=== PATIENT | female | born 1930 | race Caucasian/White ===

== ENCOUNTER 2016-05-17 13:08 | Outpatient (RCR) | payer MEDICARE, OTHER, MEDICAID ==
[~2016-05-17 13:08] MED LIST: ENXP40I.4 SC; INSU200I SQ; LACT1TAB10 PO; NF-VAL40T PO; PEDI18TA2 PO; TRAM-21 PO
--- OUTSIDE RECORDS SUMMARY | 2016-05-17 13:10 | XMS REPORT | Continuity of Care Document ---
Author Author [facility] Organization [facility] Address Unknown Phone Unavailable Care Team Providers Care Scrap Metal Processing Worker Name Role Phone SHIRA MCKEON DO PCP Insurance Providers Payer Name Policy Number Subscriber Name Relationship Wps Medicare [id number] Melissa Hernandez 20 Self / Same As Patient For Life [id number] Joel Hernandez T 01 Advance Directives Directive Response Recorded Date/Time Advance Directives Yes 12/04/14 8:30am Health Care Power of Manager Architecture No 12/04/14 8:30am Organ Donor No 12/04/14 8:30am Resuscitation Status Full Code 12/04/14 8:30am Problems No known problems or medical conditions. Medications Medication Dose Route Sig Days/Qty Instructions Order Date Discontinued Date Status Lactobacillus Acidophilus 1 Tab PO TWICE A DAY 12/04/14 Active Valsartan 40 Mg PO DAILY 12/04/14 Active Pedi Mv No.79/Ferrous Fumarate 1 Tab PO TWICE A DAY 12/04/14 Active Insulin Lispro Unit SQ FOUR TIMES DAILY AC & HS ON SLIDING SCALE. 12/04 Active Tramadol Hcl 50 Mg PO EVERY 12 HOURS 20 Qty 12/09/14 Active Enoxaparin Sodium 40 Mg SC DAILY@1400 14 Qty 12/10/14 Active Social History Social History Problem Response Recorded Date/Time Alcohol Use Denies Use 12/04/2014 8:30am Recreational Drug Use No 12/04/2014 8:30am Recent Foreign Travel No 12/04/2014 8:30am Recent Infectious Disease Exposure No 12/04/2014 8:30am Hospitalization with Isolation Denies 12/10/2014 10:03am Sexually Transmitted Disease No 12/04/2014 8:30am HIV/AIDS No 12/04/2014 8:30am Smoking Status Never a Smoker 12/04/2014 8:30am Do you dip or chew tobacco? No 12/04/2014 8:30am Query Response Start Date Stop Date Smoking Status Never a Smoker Hospital Discharge Instructions Patient Instructions Physician Instructions New, Converted or Re-Newed RX: RX on Chart Plan of Care/Instructions/FU: Please remove central line on Tuesday, 10 December, prior to discharge. Please arrange for Lovenox 30 mg subcutaneously to be given once a day by the [facility] staff at [facility]. Follow-up with nc at [facility] in [facility] on Tuesday, 17 December. May shower. Activity as Tolerated: No Goal: No lifting over 10 pounds Discharge Diet: No Restrictions Care Plan Patient Instructions:: Please remove central line on December, prior to discharge.Please arrange for Lovenox 30 mg subcutaneously to be given once a day bythe fci staff at [facility]. Follow-up with [facility] in [facility] on December. May shower. Goal:: No lifting over 10 pounds Plan of Care Discharge Date 12/10/14 9:30am Disposition 30 STILL A PATIENT Instructions/Education Provided Laparoscopic Bowel Resection (DC) Prescriptions See Medications Section Referrals (Unspecified) Reason(s) for Referral: Pt to follow up with Dr. Uriarte in [place] on Tuesday the , . Pt to follow up with Dr. Muir in [place] in 3 weeks, [phone]. Additional Instructions/Education PHYSICAL THERAPY TO EVAL AND TREAT OCCUPATIONAL THERAPY TO EVAL AND TREAT. SPEECH THERAPY TO EVAL AND TREAT. Functional Status Query Response Date Recorded Patient Orientation Person Place December 10, 2014 10:03am Comprehension Ability Understands Concepts December 07, 2014 8:10pm Allergies, Adverse Reactions, Alerts Allergen Type Severity Reaction Status Last Updated lisinopril ([id number]) Allergy Unknown Active 12/04/14 Immunizations Name Given Type Date of Pneumonia Vaccine 05/09/04 Historical pneumococcal polysaccharide PPV23 12/10/14 Administered Vital Signs Acute Vital Signs Vital Response Date/Time Temperature (Fahrenheit) 97.8 degrees F (97.6 - 99.5) Temperature (Calculated Celsius) 36.23871 degrees C (36.4 - 37.5) Temperature Source Temporal Pulse Rate (adult) 75 bpm (60 - 90) Respiratory Rate 20 bpm (12 - 24) O2 Sat by Pulse Oximetry 96 % (88 - 100) Blood Pressure 156/89 mm Hg Blood Pressure Mean 111 mm Hg Pain Pain Intensity 0 Height (Feet) 5 feet Height (Inches) 0.00 inches Height (Calculated Centimeters) 152.977750 cm Weight (Pounds) 102 pounds Weight (Ounces) 0.0 oz Weight (Calculated Grams) 17428.422 gm Weight (Calculated Kilograms) 46.723373 kilograms Calculated BMI 16.97 Results Laboratory Results Test Name Result Units Flags Reference Collection Date/Time Result Date/ Time Comments White Blood Count 9.1 10^3/uL 4.3-11.0 12/06/2014 9:40am 12/06/2014 9: 50am Red Blood Count 3.70 10^6/uL L 4.35-5.85 12/06/2014 9:40am 12/06/2014 9: 50am Hemoglobin 9.1 G/DL L 11.5-16.0 12/06/2014 9:40am 12/06/2014 9:50am Hematocrit 29 % L 35-52 12/06/2014 9:40am 12/06/2014 9:50am Mean Corpuscular Volume 80 FL 80-99 12/06/2014 9:40am 12/06/2014 9: 50am Mean Corpuscular Hemoglobin 25 PG 25-34 12/06/2014 9:40am 12/06/2014 9: 50am Mean Corpuscular Hemoglobin Concent 31 G/DL L 32-36 12/06/2014 9:40am 9:50am Red Cell Distribution Width 17.2 % H 10.0-14.5 12/06/2014 9:40am 2014 9:50am Platelet Count 243 10^3/uL 130-400 12/06/2014 9:40am 12/06/2014 9:50am Mean Platelet Volume 10.0 FL 7.4-10.4 12/06/2014 9:40am 12/06/2014 9: 50am Neutrophils (%) (Auto) 81 % H 42-75 12/05/2014 5:00am 12/05/2014 5:14am Lymphocytes (%) (Auto) 11 % L 12-44 12/05/2014 5:00am 12/05/2014 5:14am Monocytes (%) (Auto) 8 % 0-12 12/05/2014 5:00am 12/05/2014 5:14am Eosinophils (%) (Auto) 0 % 0-10 12/05/2014 5:00am 12/05/2014 5:14am Basophils (%) (Auto) 0 % 0-10 12/05/2014 5:00am 12/05/2014 5:14am Neutrophils # (Auto) 9.3 X 10^3 H 1.8-7.8 12/05/2014 5:00am 12/05/2014 5: 14am Lymphocytes # (Auto) 1.3 X 10^3 1.0-4.0 12/05/2014 5:00am 12/05/2014 5: 14am Monocytes # (Auto) 0.9 X 10^3 0.0-1.0 12/05/2014 5:00am 12/05/2014 5: 14am Eosinophils # (Auto) 0.0 10^3/uL 0.0-0.3 12/05/2014 5:00am 12/05/2014 5 :14am Basophils # (Auto) 0.0 10^3/uL 0.0-0.1 12/05/2014 5:00am 12/05/2014 5: 14am Sodium Level 139 MMOL/L 135-145 12/09/2014 9:24am 12/09/2014 10:23am Potassium Level 4.0 MMOL/L 3.6-5.0 12/09/2014 9:24am 12/09/2014 10: 23am Chloride Level 105 MMOL/L 98-107 12/09/2014 9:24am 12/09/2014 10:23am Carbon Dioxide Level 29 MMOL/L 21-32 12/09/2014 9:24am 12/09/2014 10: 23am Anion Gap 5 MMOL/L 5-14 12/09/2014 9:12/09/2014 10:23am Blood Urea Nitrogen 13 MG/DL 7-18 12/09/2014 9:12/09/2014 10:23am Creatinine 0.67 MG/DL 0.60-1.30 12/09/2014 9:12/09/2014 10:23am BUN/Creatinine Ratio 19 12/09/2014 9:12/09/2014 10:23am Estimat Glomerular Filtration Rate > 60 12/09/2014 9:2014 10:23am GFR INTERPRETIVE DATA UNITS FOR ESTIMATED GFR (eGFR): mL/min/1.73 M2 REFERENCE RANGE FOR ESTIMATED GFR (eGFR) eGFR NORMAL eGFR >60 MODERATELY DECREASED eGFR 30-59 SEVERLY DECREASED eGFR 15-29 KIDNEY FAILURE <15 (OR DIALYSIS) Glucose Level 209 MG/DL H 70-105 12/09/2014 9:12/09/2014 10:23am Glucometer 122 MG/DL H 70-110 12/10/2014 6:12/10/2014 6:16am Calcium Level 8.3 MG/DL L 8.5-10.1 12/09/2014 9:12/09/2014 10:23am Phosphorus Level 3.8 MG/DL 2.3-4.7 12/09/2014 9:12/09/2014 10: 23am Magnesium Level 2.0 MG/DL 1.8-2.4 12/09/2014 9:12/09/2014 10:23am Total Bilirubin 0.4 MG/DL 0.1-1.0 12/09/2014 9:12/09/2014 10:23am Alkaline Phosphatase 47 U/L 40-136 12/09/2014 9:12/09/2014 10: 23am Aspartate Amino Transf (AST/SGOT) 26 U/L 5-34 12/09/2014 9:2014 10:23am Alanine Aminotransferase (ALT/SGPT) 23 U/L 0-55 12/09/2014 9:12/09 10:23am Total Protein 5.2 G/DL L 6.4-8.2 12/09/2014 9:12/09/2014 10:23am Albumin 2.7 G/DL L 3.2-4.5 12/09/2014 9:24am 12/09/2014 10:23am Prealbumin 12.9 MG/DL L 18.0-35.7 12/09/2014 9:24am 12/09/2014 10:43am Triglycerides Level 89 MG/DL <150 12/09/2014 9:24am 12/09/2014 10:23am Procedures Procedure Status Date Provider(s) Insertion of triple lumen catheter completed 12/04/14 JOVANY URIARTE MD Resection of colon completed 12/04/14 JOVANY URIARTE MD Tracing only of electrocardiogram completed 12/04/14 CHRISTELLE TOBIAS MD Encounters Encounter Location Date/Time Discharged Inpatient Via [facility] 12/04/14 7:22am
[2016-05-17 13:35] LABS: BASOPHILS % (AUTO) 0 % (0-10); EOSINOPHILS # (AUTO) 0.2 10^3/uL (0.0-0.3); EOSINOPHILS % (AUTO) 3 % (0-10); LYMPHOCYTES # (AUTO) 1.4 X 10^3 (1.0-4.0); LYMPHOCYTES % (AUTO) 24 % (12-44); MEAN CORPUSCULAR HEMOGLOBIN 30 PG (25-34); MEAN CORPUSCULAR HGB CONC 34 G/DL (32-36); MEAN CORPUSCULAR VOLUME 88 FL (80-99); MEAN PLATELET VOLUME 10.7 FL (7.4-10.4); MONOCYTES # (AUTO) 0.5 X 10^3 (0.0-1.0); MONOCYTES % (AUTO) 9 % (0-12); NEUTROPHILS # (AUTO) 3.8 X 10^3 (1.8-7.8); NEUTROPHILS % (AUTO) 64 % (42-75); PLATELET COUNT 150 10^3/uL (130-400); RED BLOOD COUNT 4.13 10^6/uL (4.35-5.85); RED CELL DISTRIBUTION WIDTH 13.2 % (10.0-14.5)
[2016-05-17 14:10] LABS: ALBUMIN 4.1 G/DL (3.2-4.5); BILIRUBIN,TOTAL 0.6 MG/DL (0.1-1.0); CALCIUM 9.2 MG/DL (8.5-10.1); CREATININE SERUM 1.34 MG/DL (0.60-1.30); POTASSIUM 4.2 MMOL/L (3.6-5.0); TOTAL PROTEIN 6.8 G/DL (6.4-8.2)
[2016-05-31] MEDS ORDERED: CLON0.1T PO (14:05)
[2016-05-31] MEDS ORDERED: HYDR-757 PO (14:05)
[2016-05-31] MEDS ORDERED: INSU100V6 SQ (14:05)
[2016-05-31] MEDS ORDERED: MAGN400O7 PO (14:05)
[2016-05-31] MEDS ORDERED: OMEP20CA12 PO (14:05)
[2016-05-31] MEDS ORDERED: VALS80TA30 PO (15:57)
[2016-05-31] MEDS ORDERED: TRAM50TA2 PO ×2 (16:01)
[2016-05-31] MEDS ORDERED: INSU100I14 SC (16:07)
[2016-06-02] MEDS ORDERED: TRAM50TA2 PO (09:32)
== END 2016-08-15 | disposition home or self-care (01) ==
LOC: ONC 13:08
PROVIDERS: ATTEND Internal Medicine Hematology & Oncology
DX: C18.4 Malignant neoplasm of transverse colon (principal); C18.0 Malignant neoplasm of cecum; Z98.0 Intestinal bypass and anastomosis status; Z79.4 Long term (current) use of insulin
CPT/HCPCS: 36415; 80053; 82378; 85025; 99213

== ENCOUNTER 2016-05-21 08:35 | Outpatient (CLI) | payer MEDICARE, OTHER, MEDICAID ==
[~2016-05-21] VITALS: Ht 152.4 cm; Wt 60.8 kg
--- OUTSIDE RECORDS SUMMARY | 2016-05-21 08:39 | XMS REPORT | Continuity of Care Document ---
Author Author [facility] Organization [facility] Address Unknown Phone Unavailable Care Team Providers Care Basket Hand Weaver Name Role Phone SHIRA MCKEON DO PCP Insurance Providers Payer Name Policy Number Subscriber Name Relationship Wps Medicare [id number] Melissa Hernandez 18 Self / Same As Patient For Life [id number] Joel Hernandez T 01 Advance Directives Directive Response Recorded Date/Time Advance Directives Yes 12/04/14 8:30am Health Care Power of Cyber Workforce Developer And Manager No 12/04/14 8:30am Organ Donor No 12/04/14 [...] be given once a day by the shelter staff at [facility]. Follow-up with ak at [facility] in [facility] on Tuesday, 17 December. May shower. Activity as Tolerated: No Goal: No lifting over 10 pounds Discharge Diet: No Restrictions Care Plan Patient Instructions:: Please remove central line on December, prior to discharge.Please arrange for Lovenox 30 mg subcutaneously to be given once a day bythe shelter staff at [facility]. Follow-up with [facility] in [facility] on December. May shower. Goal:: No lifting over 10 pounds Plan of Care Discharge Date 12/10/14 9:30am Disposition 30 STILL A PATIENT Instructions/Education Provided Laparoscopic Bowel Resection (DC) Prescriptions See Medications Section Referrals (Unspecified) Reason(s) for Referral: Pt to follow up with Dr. Uriarte in [place] on Tuesday the , . Pt to follow up with Dr. Muir in [place] in 3 weeks, [phone]. Additional Instructions/Education PHYSICAL THERAPY TO EVAL AND TREAT OCCUPATIONAL THERAPY TO EVAL AND TREAT. SPEECH THERAPY TO EVAL AND TREAT. Functional Status Query Response Date Recorded Patient Orientation Person Place December 10, 2014 10:03am Comprehension Ability Understands Concepts December 07, 2014 8:10pm Allergies, Adverse Reactions, Alerts Allergen Type Severity Reaction Status Last Updated lisinopril ([id number]) Allergy Unknown Active 12/04/14 Immunizations Name Given Type Date of Pneumonia Vaccine 05/09/04 Historical pneumococcal polysaccharide PPV23 12/10/14 Administered Vital Signs Acute Vital Signs Vital Response Date/Time Temperature (Fahrenheit) 97.8 degrees F (97.6 - 99.5) Temperature (Calculated Celsius) 36.11927 degrees C (36.4 - 37.5) Temperature Source Temporal Pulse Rate (adult) 75 bpm (60 - 90) Respiratory Rate 20 bpm (12 - 24) O2 Sat by Pulse Oximetry 96 % (88 - 100) Blood Pressure 156/89 mm Hg Blood Pressure Mean 111 mm Hg Pain Pain Intensity 0 Height (Feet) 5 feet Height (Inches) 0.00 inches Height (Calculated Centimeters) 152.817900 cm Weight (Pounds) 102 pounds Weight (Ounces) 0.0 oz Weight (Calculated Grams) 37480.422 gm Weight (Calculated Kilograms) 46.956944 kilograms Calculated BMI 16.97 Results Laboratory Results [...] Encounters Encounter Location Date/Time Discharged Inpatient Via [facility] 12/04/14 7:22am
== END 2016-05-21 12:02 ==
LOC: PREOP 08:35
PROVIDERS: ATTEND Surgery
DX: Z01.818 Encounter for other preprocedural examination (principal); K43.2 Incisional hernia without obstruction or gangrene

== ENCOUNTER 2016-05-31 10:16 | Day surgery (SDC) | payer MEDICARE, OTHER, MEDICAID ==
[~2016-05-31] VITALS: Ht 152.4 cm; Wt 60.8 kg
--- OUTSIDE RECORDS SUMMARY | 2016-05-31 10:22 | XMS REPORT | Continuity of Care Document ---
Author Author [facility] Organization [facility] Address Unknown Phone Unavailable Care Team Providers Care Port Patrol Officer Name Role Phone SHIRA MCKEON DO PCP Insurance Providers Payer Name Policy Number Subscriber Name Relationship Wps Medicare [id number] Meilssa Hernandez 20 Self / Same As Patient For Life [id number] Joel Hernandez T 01 Advance Directives Directive Response Recorded Date/Time Advance Directives Yes 12/04/14 8:30am Health Care Power of Oriental Rug Repairer No 12/04/14 8:30am Organ Donor No 12/04/14 [...] be given once a day by the senior care staff at [facility]. Follow-up with wa at [facility] in [facility] on Tuesday, 17 December. May shower. Activity as Tolerated: No Goal: No lifting over 10 pounds Discharge Diet: No Restrictions Care Plan Patient Instructions:: Please remove central line on December, prior to discharge.Please arrange for Lovenox 30 mg subcutaneously to be given once a day bythe senior care staff at [facility]. Follow-up with [facility] in [facility] on December. May shower. Goal:: No lifting over 10 pounds Plan of Care Discharge Date 12/10/14 9:30am Disposition 30 STILL A PATIENT Instructions/Education Provided Laparoscopic Bowel Resection (DC) Prescriptions See Medications Section Referrals (Unspecified) Reason(s) for Referral: Pt to follow up with Dr. Uriarte in [place] on Tuesday the , . Pt to follow up with Dr. Muir in [place] in 3 weeks, [phone]. Additional Instructions/Education PHYSICAL THERAPY TO EVAL AND TREAT OCCUPATIONAL THERAPY TO EVAL AND TREAT. SPEECH THERAPY TO EVAL AND TREAT. Functional Status Query Response Date Recorded Patient Orientation Person Place December 10, 2014 10:03am Comprehension Ability Understands Concepts December 07, 2014 8:10pm Allergies, Adverse Reactions, Alerts Allergen Type Severity Reaction Status Last Updated lisinopril ([id number]) Allergy Unknown Active 12/04/14 Immunizations Name Given Type Date of Pneumonia Vaccine 05/09/04 Historical pneumococcal polysaccharide PPV23 12/10/14 Administered Vital Signs Acute Vital Signs Vital Response Date/Time Temperature (Fahrenheit) 97.8 degrees F (97.6 - 99.5) Temperature (Calculated Celsius) 36.56847 degrees C (36.4 - 37.5) Temperature Source Temporal Pulse Rate (adult) 75 bpm (60 - 90) Respiratory Rate 20 bpm (12 - 24) O2 Sat by Pulse Oximetry 96 % (88 - 100) Blood Pressure 156/89 mm Hg Blood Pressure Mean 111 mm Hg Pain Pain Intensity 0 Height (Feet) 5 feet Height (Inches) 0.00 inches Height (Calculated Centimeters) 152.476636 cm Weight (Pounds) 102 pounds Weight (Ounces) 0.0 oz Weight (Calculated Grams) 08989.422 gm Weight (Calculated Kilograms) 46.991788 kilograms Calculated BMI 16.97 Results Laboratory Results [...] Encounters Encounter Location Date/Time Discharged Inpatient Via [facility] 12/04/14 7:22am
--- OUTSIDE RECORDS SUMMARY | 2016-05-31 10:22 | XMS REPORT | Continuity of Care Document ---
Author Author [facility] Organization [facility] Address Unknown Phone Unavailable Care Team Providers Care Network Systems Integrator Name Role Phone SHIRA MCKEON DO PCP Insurance Providers Payer Name Policy Number Subscriber Name Relationship Wps Medicare [id number] Melissa Hernandez 18 Self / Same As Patient For Life [id number] Joel Hernandez T 01 Advance Directives Directive Response Recorded Date/Time Advance Directives Yes 12/04/14 8:30am Health Care Power of Tool Repairer No 12/04/14 8:30am Organ Donor No [...] be given once a day by the skilled nursing staff at [facility]. Follow-up with nd at [facility] in [facility] on Tuesday, 17 December. May shower. Activity as Tolerated: No Goal: No lifting over 10 pounds Discharge Diet: No Restrictions Care Plan Patient Instructions:: Please remove central line on December, prior to discharge.Please arrange for Lovenox 30 mg subcutaneously to be given once a day bythe skilled nursing staff at [facility]. Follow-up with [facility] in [facility] on December. May shower. Goal:: No lifting over 10 pounds Plan of Care Discharge Date 12/10/14 9:30am Disposition 30 STILL A PATIENT Instructions/Education Provided Laparoscopic Bowel Resection (DC) Prescriptions See Medications Section Referrals (Unspecified) Reason(s) for Referral: Pt to follow up with Dr. Uriarte in [place] on Tuesday the , . Pt to follow up with Dr. Muir in [place] in 3 weeks, [phone]. Additional Instructions/Education PHYSICAL THERAPY TO EVAL AND TREAT OCCUPATIONAL THERAPY TO EVAL AND TREAT. SPEECH THERAPY TO EVAL AND TREAT. Functional Status Query Response Date Recorded Patient Orientation Person Place December 10, 2014 10:03am Comprehension Ability Understands Concepts December 07, 2014 8:10pm Allergies, Adverse Reactions, Alerts Allergen Type Severity Reaction Status Last Updated lisinopril ([id number]) Allergy Unknown Active 12/04/14 Immunizations Name Given Type Date of Pneumonia Vaccine 05/09/04 Historical pneumococcal polysaccharide PPV23 12/10/14 Administered Vital Signs Acute Vital Signs Vital Response Date/Time Temperature (Fahrenheit) 97.8 degrees F (97.6 - 99.5) Temperature (Calculated Celsius) 36.18624 degrees C (36.4 - 37.5) Temperature Source Temporal Pulse Rate (adult) 75 bpm (60 - 90) Respiratory Rate 20 bpm (12 - 24) O2 Sat by Pulse Oximetry 96 % (88 - 100) Blood Pressure 156/89 mm Hg Blood Pressure Mean 111 mm Hg Pain Pain Intensity 0 Height (Feet) 5 feet Height (Inches) 0.00 inches Height (Calculated Centimeters) 152.855873 cm Weight (Pounds) 102 pounds Weight (Ounces) 0.0 oz Weight (Calculated Grams) 89286.422 gm Weight (Calculated Kilograms) 46.067909 kilograms Calculated BMI 16.97 Results Laboratory Results [...] Encounters Encounter Location Date/Time Discharged Inpatient Via [facility] 12/04/14 7:22am
--- NOTE | 2016-05-31 10:36 | Progress Note-Pre Operative ---
Pre-Operative Progress Note H&P Reviewed The H&P was reviewed, patient examined and no changes noted. Date H&P Reviewed: May 31, 2016 Time H&P Reviewed: 10:35 Pre-Operative Diagnosis: ventral hernia JOVANY URIARTE MD May 31, 2016 10:36 am
[2016-05-31] MEDS ORDERED: CATHETER FLUSH 10 ML SYR IV PRN (10:45)
[2016-05-31] MEDS ORDERED: ceFAZolin 1 GM/NS 50 ML IVPB IV ONE ×2 (10:45)
[2016-05-31] MEDS ORDERED: oxyCODONE ER 10 MG (OxyCONTIN CR) TAB PO ONE ×2 (10:52→11:00)
[2016-05-31] MEDS ORDERED: ceFAZolin 1,000 MG (ANCEF) VIAL ONE (10:53)
[2016-05-31] MEDS ORDERED: NORMAL SALINE (BAXTER MINI) 50 ML IV ONE (10:53)
[2016-05-31] MEDS ORDERED: CELECOXIB 100 MG (CeleBREX) CAP PO ONE ×2 (10:53→11:00)
[2016-05-31] MEDS ORDERED: ACETAMINOPHEN 500 MG TAB (TYLENOL) ONE (10:53)
[2016-05-31 11:00] VITALS: BP 199/99
[2016-05-31] MEDS ORDERED: ACETAMINOPHEN 500 MG TAB (TYLENOL) PO ONE (11:00)
[2016-05-31] MEDS ORDERED: morphine INJ 10 MG/ML 1ML (SYR OR VIAL) IV PRN (11:00)
[2016-05-31] MEDS ORDERED: PREGABALIN 75 MG (LYRICA) CAP PO ONE (11:00)
[2016-05-31] MEDS ORDERED: ONDANSETRON 4 MG/2 ML (SDV) Z0FRAN ONE (11:09)
[2016-05-31] MEDS ORDERED: LIDOCAINE JELLY 2% (XYLOCAINE) 5 ML TUBE ONE (11:09)
[2016-05-31] MEDS ORDERED: proPOfol 200 MG/20 ML (DIPRIVAN) VIAL IV ONE (11:09)
[2016-05-31] MEDS ORDERED: LACTATED RINGERS 1,000 ML IV ONE ×2 (11:09→13:54)
[2016-05-31] MEDS: LACTATED RINGERS 1,000 ML IV SCH ×3 (11:09→15:01)
[2016-05-31] MEDS ORDERED: LIDOCAINE PF 2% 10 ML (XYLOCAINE) AMP ONE (11:09)
[2016-05-31] MEDS ORDERED: ROCURONIUM 50 MG/5 ML (ZEMURON) VIAL IV ONE (11:09)
[2016-05-31] MEDS ORDERED: MIDAZOLAM 2 MG/2 ML (VERSED) VIAL ONE (11:10)
[2016-05-31] MEDS ORDERED: BUP/EPI 0.25% 1:200,000 (MARCAINE) 30 ML VIAL ONE (11:11)
[2016-05-31] MEDS ORDERED: KETAMINE HCL 100 MG/ML 5 ML VIAL ONE (11:32)
[2016-05-31] MEDS ORDERED: LIDOCAINE PF 0.5% 50 ML (XYLOCAINE) VIAL ONE (12:16)
[2016-05-31] MEDS ORDERED: SEVOFLURANE (ULTANE) 15 ML INHAL SOLN ONE ×8 (12:16→13:54)
[2016-05-31] MEDS ORDERED: hydrALAZINE (APESOLINE) 20 MG/ML VIAL ONE (13:22)
--- NOTE | 2016-05-31 13:31 | Progress Note-Post Operative ---
Post-Operative Progess Note Pre-Operative Diagnosis ventral hernia Post-Operative Diagnosis same Post-Op Procedure Note Date of Procedure: May 31, 2016 Name of Procedure: robotic assisted repair with mesh Anesthesia Type Gen. Estimated blood loss (mL): minimal JOVANY URIARTE MD May 31, 2016 1:31 pm
[2016-05-31] MEDS ORDERED: NEOSTIGMINE (BLOXIVERZ ) 1 MG/1ML 10 ML VIAL ONE (13:35)
[2016-05-31] MEDS ORDERED: GLYCOPYRROLATE 0.2 MG/ML (ROBINUL) 2 ML VIAL ONE (13:35)
[2016-05-31] MEDS ORDERED: ONDANSETRON 4 MG/2 ML (SDV) Z0FRAN IVP PRN ×2 (13:45→14:00)
[2016-05-31] MEDS ORDERED: HYDROcodone/APAP 5 MG/325 MG (LORTAB) TAB PO PRN (13:45)
[2016-05-31] MEDS ORDERED: MEPERIDINE (DEMEROL) INJ 50 MG/ML IVP PRN (14:00)
[2016-05-31] MEDS ORDERED: morphine INJ 10 MG/ML 1ML (SYR OR VIAL) IVP PRN (14:00)
[2016-05-31] MEDS ORDERED: HYDR-757 PO (14:05)
[2016-05-31] MEDS ORDERED: CLON0.1T PO (14:05)
[2016-05-31] MEDS ORDERED: MAGN400O7 PO (14:05)
[2016-05-31] MEDS ORDERED: OMEP20CA12 PO (14:05)
[2016-05-31] MEDS ORDERED: INSU100V6 SQ (14:05)
--- NOTE | 2016-05-31 14:09 | OPERATIVE REPORT ---
PROCEDURE PHYSICIAN: JOVANY URIARTE DATE OF PROCEDURE: 05/31/2016 PREOPERATIVE DIAGNOSIS: Ventral hernia. POSTOPERATIVE DIAGNOSIS: Ventral hernia. OPERATION: Robotic assisted repair of ventral hernia with mesh. SURGEON: Kenny ANESTHESIA: General anesthesia. BLOOD LOSS: Minimal. FLUIDS: 100 mL of crystalloids. TYPE OF WOUND: Type I (clean wound). INDICATION FOR PROCEDURE: This lady presented with a ventral hernia in relation to a short upper midline incision used to extract the specimen during right hemicolectomy performed in 2014. Due to increasing symptoms, it was felt reasonable to repair the hernia with minimally invasive technique and mesh reinforcement. Informed consent was obtained after reviewing the operative details and complications of hematoma, infection of the mesh and recurrence of the hernia. DESCRIPTION OF PROCEDURE: She was placed supine on the operating table and general anesthesia induced using an endotracheal tube. A gram of Ancef was administered intravenously as prophylaxis against wound infection. Sequential compression devices were placed around her legs, to minimize the risk of venous thrombosis. The left side of her body was tilted up on a roll to facilitate triangulation of the robotic system. Abdomen was then prepared and draped in the usual sterile manner. Pneumoperitoneum was established using a Veress needle introduced over left subcostal margin. Intra-abdominal pressure was maintained at 15 mmHg. A 12 mm trocar was placed and anatomy visualized using the 3 dimensional, high definition laparoscope associated with da Shon system. Omentum was adherent to the undersurface of the hernia. Under direct view, I placed another 12 mm trocar over the left side of the abdomen along the midaxillary line, followed by an 8 mm cannula over the left lower quadrant. The initial trocar over the left subcostal margin had to be moved further laterally to avoid collision with the instruments. The robotic system was docked in place. Omentum was taken down using hook cautery, delineating multiple defects along the previous incision. The defect was then approximated using 2 separate sutures of 0 V-Loc using robotic assistance. The repair was then reinforced with polypropylene mesh measuring 10.2 x 15.2 cm in diameter. A self-retaining balloon contained within the mesh was used to secure the mesh during suturing. The edges of the mesh were then secured with 2-0 V-Loc sutures with the robotic assistance. Hemostasis was satisfactory and the operation concluded. The incisions were then closed using 4-0 Vicryl, in a subcuticular fashion. 0.25% Marcaine with epinephrine was infiltrated along the incisions, both preemptively and at the conclusion of the operation. She tolerated the procedure well, was extubated in the operating room and taken to the recovery room in a stable condition. [place], sponges, and instruments were correct the end of the operation. Job ID: [id number] Dictated Date: 05/31/2016 13:30:10 Eye Dropper Assembler Date: 05/31/2016 14:01:27 / marlon MARTINEZ
[2016-05-31] MEDS ORDERED: KETOROLAC 30 MG/ML VIAL ONE (14:16)
[2016-05-31] MEDS: KETOROLAC 30 MG/ML VIAL IV SCH ×3 (14:25→23:32)
[2016-05-31 14:30] VITALS: BP 190/90
[2016-05-31] MEDS: fentaNYL INJECTION 100 MCG/2 ML AMP IV PRN ×3 (15:01→21:45)
[2016-05-31] MEDS ORDERED: VALS80TA30 PO (15:57)
[2016-05-31] MEDS ORDERED: TRAM50TA2 PO ×2 (16:01)
[2016-05-31] MEDS ORDERED: INSU100I14 SC (16:07)
[2016-05-31 16:24] VITALS: BP 177/85
[2016-05-31] MEDS: inSUlin ASPART (NovoLOG) 1 UNIT/0.01 ML (CHARGE PER UNIT) SC SCH ×2 (16:56→21:00)
[2016-05-31 20:00] VITALS: BP 180/74
[2016-05-31 23:40] VITALS: BP 170/76
[2016-06-01 03:56] VITALS: BP 168/76
[2016-06-01] MEDS: inSUlin ASPART (NovoLOG) 1 UNIT/0.01 ML (CHARGE PER UNIT) SC SCH ×4 (05:49→21:08)
[2016-06-01] MEDS: KETOROLAC 30 MG/ML VIAL IV SCH ×4 (05:49→23:20)
[2016-06-01] MEDS: LACTATED RINGERS 1,000 ML IV SCH ×2 (07:37→09:18)
[2016-06-01 08:00] VITALS: BP 167/75
--- NOTE | 2016-06-01 09:57 | Physical Therapy Evaluation ---
PT Evaluation-General Medical Diagnosis Admission Date May 31, 2016 at 13:32 Medical Diagnosis: ventral hernia Onset Date: May 31, 2016 Therapy Diagnosis Therapy Diagnosis: debility Height/Weight Height (Feet): 5 Height (Inches): 0.00 Weight (Pounds): 134 Weight (Ounces): 0.0 Precautions Precautions/Isolations: Fall Prevention, Standard Precautions Referral Physician: Kenny Reason for Referral: Evaluation/Treatment Medical History Pertinent Medical History: DM, HTN Additional Medical History bipolar; subdural hematoma Current History s/p laparoscopy Reviewed History: Yes Social History Home: Long Term Prior/Core FIM Prior Level of Function Functional [place] Measure 0=Not Assessed/NA 4=Minimal Assistance 1=Total Assistance 5=Supervision or Setup 2=Maximal Assistance 6=Modified [place] 3=Moderate Assistance 7=Complete [place] Bed Mobility: 5 Transfers (B,C,W/C) (FIM): 5 Gait: 5 uses FWW at [place] PT Evaluation-Current Subjective Patient is in bed and agrees to PT. Pain Numeric Pain Scale: 5-Moderate Pain Location: Lower Location Body Site: Abdomen Pain Description: Acute Objective Patient Orientation: Person, Time, Situation Problem Solving: Fair Attachments: Oxygen, IV ROM/Strength ROM Lower Extremities bilateral LE WFL Strenght Lower Extremities bilateral LE WFL Integumentary/Posture Integumentary refer to nursing notes Bowel Incontinence: No Bladder Incontinence: No Posture WNL Neuromuscular (Tone, Coordination, Reflexes) grossly intact Sensory Vision: Functional Hearing: Functional Sensation Right Lower Extremit: Impaired Sensation Left Lower Extremity: Impaired Transfers Functional [place] Measure 0=Not Assessed/NA 4=Minimal Assistance 1=Total Assistance 5=Supervision or Setup 2=Maximal Assistance 6=Modified [place] 3=Moderate Assistance 7=Complete [place] Transfers (B, C, W/C) (FIM): 5 Scootin Rollin Supine to/from Sit: 5 Sit to/from Stand: 5 Gait Mode of Locomotion: Walk Anticipated Mode of Locomotion: Walk Gait (FIM): 5 Distance (FIM): 3=150 ft Distance: 150' Gait Level of Assist: 5 Gait Assistive Device: FWW Comments/Gait Description safe and functional Balance Sitting Static: Normal Sitting Dynamic: Normal Standing Static: Normal Standing Dynamic: Normal Assessment/Needs 85 y.o. female, will benefit from short term skilled PT to ensure safe return to [place] and to prevent pneumonia and improve circulation. Rehab Potential: Good PT Short Term Goals Short Term Goals Time Frame: Jun 04, 2016 Transfers (B,C,W/C) (FIM): 5 Gait (FIM): 5 Distance (FIM): 3=150 ft PT Plan Problem List Problem List: Activity Tolerance Treatment/Plan Treatment Plan: Continue Plan of Care Treatment Plan: Education, Functional Activity Rajinder, Functional Strength, Gait , Safety, Therapeutic Exercise Treatment Duration: Jun 04, 2016 # of days/week 4 Visits Per Week: 4 Pt/Family Agrees w/Plan: Yes Discharge Recommendations Therapy D/C Recommendations: Long Term Placement Time/GCodes Time In: 905 Time Out: 920 Total Billed Treatment Time: 15 Total Billed Treatment 1 visit EVMod 15 min ANN MARCH PT Jun 01, 2016 09:57
--- NOTE | 2016-06-01 10:01 | Anesthesia-General Post-Op ---
General Patient Condition Mental Status/LOC: Same as Preop Cardiovascular: Satisfactory Nausea/Vomiting: Absent Respiratory: Satisfactory Pain: Controlled Complications: Absent Post Op Complications Complications None Follow Up Care/Instructions Patient Instructions None needed. Anesthesia/Patient Condition Patient Condition Patient is doing well, no complaints, stable vital signs, no apparent adverse anesthesia problems. No complications reported per nursing. D/C home per [facility] Criteria: No ADIA NAZARIO CRNA Jun 01, 2016 10:01
[2016-06-01] MEDS: VALSARTAN 80 MG (DIOVAN) TAB PO SCH (11:40)
[2016-06-01 12:00] VITALS: BP 194/93
--- NOTE | 2016-06-01 15:39 | Progress Note-Standard ---
Standard Progress Note Progress Notes/Assess & Plan Progress/Assessment & Plan 06/01/2016 Patient vital signs stable and doing well. Hakan any pain at this time. JOVANY URIARTE MD Jun 01, 2016 15:38
[2016-06-01 16:05] VITALS: BP 183/80
[2016-06-01 19:30] VITALS: BP 180/84
[2016-06-01] MEDS ORDERED: RX-TRAMADOL 50 MG (ULTRAM) TAB PPK#4 PO PRN (20:00)
[2016-06-01] MEDS ORDERED: cloNIDine 0.1 MG (CATAPRES) TAB PO PRN (20:00)
[2016-06-02 00:04] VITALS: BP 168/88
[2016-06-02 04:21] VITALS: BP 120/56
[2016-06-02] MEDS: KETOROLAC 30 MG/ML VIAL IV SCH ×2 (05:47→12:00)
[2016-06-02] MEDS: inSUlin ASPART (NovoLOG) 1 UNIT/0.01 ML (CHARGE PER UNIT) SC SCH ×2 (05:47→11:27)
[2016-06-02] MEDS ORDERED: PANTOPRAZOLE 20 MG TABLET (PROTONIX) PO SCH (07:00)
[2016-06-02 08:05] VITALS: BP 154/86
[2016-06-02] MEDS: VALSARTAN 80 MG (DIOVAN) TAB PO SCH (08:23)
[2016-06-02] MEDS ORDERED: VALSARTAN 80 MG (DIOVAN) TAB PO SCH (09:00)
[2016-06-02] MEDS ORDERED: TRAM50TA2 PO (09:32)
--- NOTE | 2016-06-02 09:32 | Progress Note-Standard ---
Standard Progress Note Progress Notes/Assess & Plan Progress/Assessment & Plan 06/01/2016 Patient vital signs stable and doing well. Hakan any pain at this time. 06/02/15: Doing well. Incisions dry. Could be discharged today. Final Diagnosis Ventral hernia JOVANY URIARTE MD Jun 02, 2016 9:32 am
--- NOTE | 2016-06-02 09:34 | Discharge Inst-Simple/Standard ---
Discharge Inst-Standard Discharge Medications New, Converted or Re-Newed RX: RX on Chart Patient Instructions/Follow Up Plan of Care/Instructions/FU: F/U in 4 weeks ([place]) Activity as Tolerated: No Goal: No lifting over 20 lb Discharge Diet: No Restrictions JOVANY URIARTE MD Jun 02, 2016 9:34 am
[2016-06-02 11:55] VITALS: BP 148/75
[2016-06-02] MEDS: LACTATED RINGERS 1,000 ML IV SCH (15:32)
[2016-06-02 17:24] VITALS: BP 148/75
== END 2016-06-02 16:20 ==
LOC: SDC 10:16 → UNDOADMIN 13:32 → 4TH 13:32 → UNDODISIN 06-02 16:20 → SDC 06-02 16:20
PROVIDERS: ATTEND Surgery
DX: K43.2 Incisional hernia without obstruction or gangrene (principal); Z11.2 Encounter for screening for other bacterial diseases; Z66 Do not resuscitate; Z79.899 Other long term (current) drug therapy; E11.9 Type 2 diabetes mellitus without complications; I12.9 Hypertensive chronic kidney disease with stage 1 through stage 4 chronic kidney disease, or unspecified chronic kidney disease; N18.3 Chronic kidney disease, stage 3 (moderate)
CPT/HCPCS: 82962; 87081; 94664; 94760

== ENCOUNTER → 2016-07-06 | Outpatient (CLI) | payer MEDICARE, OTHER, MEDICAID ==
[~2016-07-06] MED LIST changes: +CLON0.1T PO; +HYDR-757 PO; +INSU100I14 SC; +INSU100V6 SQ; +MAGN400O7 PO; +OMEP20CA12 PO; +TRAM50TA2 PO; +VALS80TA30 PO
--- OUTSIDE RECORDS SUMMARY | 2016-07-06 10:36 | XMS REPORT | Continuity of Care Document ---
Author Author [facility] Organization [facility] Address Unknown Phone Unavailable Care Team Providers Care Trailer Rental Clerk Name Role Phone SHIRA MCKEON DO PCP Insurance Providers Payer Name Policy Number Subscriber Name Relationship [employer] [id number] Melissa Hernandez 20 Self / Same As Patient For Life [id number] Joel Hernandez T 01 Advance Directives Directive Response Recorded Date/Time Advance Directives Yes 12/04/14 8:30am Health Care Power of Laborer Shell[employer] No 12/04/14 8:30am Organ Donor No 12/04/14 [...] day by the senior care staff at [facility]. Follow-up with ak at [facility] in [facility] on Tuesday, 17 December. May shower. Activity as Tolerated: No Goal: No lifting over 10 pounds Discharge Diet: No Restrictions Care Plan Patient Instructions:: Please remove central line on December, prior to discharge.Please arrange for Lovenox 30 mg subcutaneously to be given once a day bythe senior care staff at [facility]. Follow-up with [facility] in [facility] on December. May shower. Goal:: No lifting over 10 pounds Plan of Care Discharge Date 12/10/14 9:30am Disposition 30 STILL A PATIENT Instructions/Education Provided Laparoscopic Bowel Resection (DC) Prescriptions See Medications Section Referrals (Unspecified) Reason(s) for Referral: Pt to follow up with Dr. Uriarte in [place] on Tuesday the , . Pt to follow up with Dr. Muir in [place] in 3 weeks, [phone]. Additional Instructions/Education PHYSICAL THERAPY TO EVAL AND TREAT OCCUPATIONAL THERAPY TO EVAL AND TREAT. SPEECH THERAPY TO EVAL AND TREAT. Functional Status Query Response Date Recorded Patient Orientation Person Place December 10, 2014 10:03am Comprehension Ability Understands Concepts December 07, 2014 8:10pm Allergies, Adverse Reactions, Alerts Allergen Type Severity Reaction Status Last Updated lisinopril ([id number]) Allergy Unknown Active 12/04/14 Immunizations Name Given Type Date of Pneumonia Vaccine 05/09/04 Historical pneumococcal polysaccharide PPV23 12/10/14 Administered Vital Signs Acute Vital Signs Vital Response Date/Time Temperature (Fahrenheit) 97.8 degrees F (97.6 - 99.5) Temperature (Calculated Celsius) 36.37086 degrees C (36.4 - 37.5) Temperature Source Temporal Pulse Rate (adult) 75 bpm (60 - 90) Respiratory Rate 20 bpm (12 - 24) O2 Sat by Pulse Oximetry 96 % (88 - 100) Blood Pressure 156/89 mm Hg Blood Pressure Mean 111 mm Hg Pain Pain Intensity 0 Height (Feet) 5 feet Height (Inches) 0.00 inches Height (Calculated Centimeters) 152.700746 cm Weight (Pounds) 102 pounds Weight (Ounces) 0.0 oz Weight (Calculated Grams) 66695.422 gm Weight (Calculated Kilograms) 46.952008 kilograms Calculated BMI 16.97 Results Laboratory Results [...] Encounters Encounter Location Date/Time Discharged Inpatient Via [facility] 12/04/14 7:22am
--- NOTE | 2016-07-06 19:01 | Diagnostic Imaging Report ---
EXAMINATION: PET-CT TECHNIQUE: Serum glucose level at the time of the study is: 140 mg/dL. 12.4 mCi of FDG was administered intravenously followed by obtaining PET images with corresponding noncontrast CT scan images. The CT scan was performed for anatomic correlation and attenuation correction and was not performed according to the diagnostic protocol of the areas covered. The scan was performed from the head to mid thighs. INDICATION: Colon cancer. COMPARISON: 02/03/2016. FINDINGS: There is symmetric FDG uptake in the brain. There is no hypermetabolic mass seen in the neck. In the chest, there is no significantly hypermetabolic mass identified. The nodules seen on prior CT scan are less than a centimeter in size and are grossly stable. Accurate size evaluation however should be assessed with follow-up diagnostic CT scan of the chest. In the abdomen and pelvis, there is excretion of the tracer in the urinary tract. There are also scattered areas of activity in the bowel loops. A focal area of moderate hypermetabolism in the right side of the pelvis with maximum SUV of 6.4 appears to project on an area of bowel loop with no definitive discrete mass. There is also mild hypermetabolism deep to the anterior abdominal wall that appears to project over a low-density curvilinear area, probably a non-radiopaque mesh. IMPRESSION: 1. There are subcentimeter pulmonary nodules too small for accurate PET characterization with no hypermetabolic mass seen in the chest. Accurate nodule size assessment and comparison should be performed with a diagnostic CT chest. 2. Focal moderate hypermetabolism in the right side of the pelvis appears to project over small bowel loops, presumably physiologic with no definitive underlying mass. 3. Increased activity along the anterior abdominal wall is probably secondary to prior ventral hernia repair with non-radiopaque mesh rather than omental nodules. Dictated by: Dictated on workstation # [id number]
== END ==
LOC: RAD 10:33
PROVIDERS: ATTEND Internal Medicine Hematology & Oncology
DX: C18.8 Malignant neoplasm of overlapping sites of colon (principal)